=== PATIENT | female | born 1995 | race Caucasian/White ===

== ENCOUNTER → 2019-08-13 11:01 | Outpatient (BNVA) | payer SELFPAY | PROVIDERS: Family Provider Nurse Practitioner; Visit Provider Family Medicine | DX: Z00.00 Encounter for general adult medical examination without abnormal findings (principal); N91.2 Amenorrhea, unspecified | CPT/HCPCS: 80053; 80061; 84443; 85025 ==

== ENCOUNTER → 2020-02-03 10:56 | Outpatient (BNVA) | payer BC, SELFPAY | PROVIDERS: Family Provider Nurse Practitioner; Visit Provider Family Medicine | DX: Z98.84 Bariatric surgery status (principal) | CPT/HCPCS: 80053; 82607; 82728; 83540; 85025 ==

== ENCOUNTER → 2020-08-05 09:20 | Outpatient (BNVA) | payer BC, SELFPAY | PROVIDERS: Family Provider Nurse Practitioner; PCP Family Medicine; Visit Provider Family Medicine | DX: Z01.419 Encounter for gynecological examination (general) (routine) without abnormal findings (principal); Z98.84 Bariatric surgery status; Z78.9 Other specified health status | CPT/HCPCS: 80053; 80061; 84443; 85025; 87491; 88175 ==

== ENCOUNTER → 2020-12-19 15:20 | Outpatient (BNVA) | payer BC, SELFPAY | PROVIDERS: Family Provider Nurse Practitioner; PCP Family Medicine; Visit Provider Obstetrics & Gynecology | DX: N93.9 Abnormal uterine and vaginal bleeding, unspecified (principal) | CPT/HCPCS: 82670; 83001; 83002; 84144; 84146; 84403; 84443; 84702 ==

== ENCOUNTER → 2020-12-28 15:16 | Outpatient (BNVA) | payer BC, SELFPAY | PROVIDERS: Family Provider Nurse Practitioner; PCP Family Medicine; Visit Provider Obstetrics & Gynecology | DX: N93.9 Abnormal uterine and vaginal bleeding, unspecified (principal); N91.2 Amenorrhea, unspecified | CPT/HCPCS: 76830 ==

== ENCOUNTER → 2021-04-02 12:20 | Outpatient (BNVA) | payer BC, SELFPAY | PROVIDERS: Family Provider Nurse Practitioner; PCP Family Medicine; Visit Provider Family Medicine | DX: R05.9 Cough, unspecified (principal); Z20.822 Contact with and (suspected) exposure to COVID-19 | CPT/HCPCS: 81025; 87400 ==

== ENCOUNTER → 2021-10-04 09:22 | Outpatient (BNVA) | payer BC, SELFPAY | PROVIDERS: Family Provider Nurse Practitioner; PCP Family Medicine; Visit Provider Nurse Practitioner Family | DX: Z00.00 Encounter for general adult medical examination without abnormal findings (principal); R11.0 Nausea | CPT/HCPCS: 80053; 80061; 81025; 84443; 85025 ==

== ENCOUNTER → 2021-12-29 08:54 | Outpatient (BNVA) | payer BC, SELFPAY | PROVIDERS: Family Provider Nurse Practitioner; PCP Family Medicine; Visit Provider Nurse Practitioner Family | DX: D50.9 Iron deficiency anemia, unspecified (principal); E66.9 Obesity, unspecified; H65.90 Unspecified nonsuppurative otitis media, unspecified ear | CPT/HCPCS: 83540; 85025 ==

== ENCOUNTER → 2022-11-02 11:19 | Outpatient (BNVA) | payer BC, SELFPAY | PROVIDERS: Family Provider Nurse Practitioner; PCP Family Medicine; Visit Provider Nurse Practitioner Family | DX: R55 Syncope and collapse (principal) | CPT/HCPCS: 80053; 83540; 84443; 85025 ==

== ENCOUNTER → 2022-11-13 12:37 | Outpatient (BNVA) | payer BC, SELFPAY | PROVIDERS: Family Provider Nurse Practitioner; PCP Family Medicine; Visit Provider Internal Medicine Cardiovascular Disease | DX: R55 Syncope and collapse (principal) | CPT/HCPCS: 93005 ==

== ENCOUNTER → 2022-12-04 11:03 | Outpatient (BNVA) | payer BC, SELFPAY | PROVIDERS: Family Provider Nurse Practitioner; PCP Family Medicine; Visit Provider Nurse Practitioner Family | DX: R05.9 Cough, unspecified (principal); Z20.822 Contact with and (suspected) exposure to COVID-19 | CPT/HCPCS: 87426 ==

== ENCOUNTER 2022-12-24 09:02 | Oncology outpatient (recurring) (ONCR) | payer BC, SELFPAY ==
[2022-12-24 10:59] LABS: Hematocrit 39.1 % (36-47); Mean Corpuscular HGB Conc 30.9 g/dL (30-55); Mean Corpuscular Hemoglobin 25.6 pg (27-33); Mean Corpuscular Volume 82.8 fl (85-98); Mean Platelet Volume 10.1 fL (7.4-10.4); Platelet Count 239 10^3/cmm (157-399); Red Blood Count 4.72 10^6/uL (3.85-5.65); Red Cell Distribution Width 13.6 % (12.1-15.1); White Blood Count 5.41 10^3/uL (3.29-11.43)
[2022-12-24 11:28] LABS: Ferritin 11 ng/mL (15-150); Iron 39 ug/dL (37-145); Percent Saturation 12.3 % (20-50); Total Iron Binding Capacity 315 mcg/dl; Unsaturated Iron Binding 276 ug/dL (112-347)
[2022-12-24 11:43] LABS: Vitamin B12 339 pg/mL (232-1245)
[2022-12-24 12:02] LABS: Absolute Segmented Neutrophil 2.9 10/cmm (1.6-7.1); Lymphocytes 42 %; Monocytes Absolute 0.1 10^3/cmm (0.1-0.6); Segmented Neutrophils 54 %; Total Cells Counted 100 (0-100)
[2022-12-24 12:03] LABS: Absolute Eosinophils 0.1 10^3/cmm (0.0-0.7); Absolute Neutrophil 2.9 10^3/cmm (1.4-6.5); Eosinophils 1 %; Lymphocytes Absolute 2.4 10^3/cmm (1.2-3.4); Platelet Estimate Normal (Normal)
== END 2023-01-22 23:59 | disposition home or self-care (01) ==
PROVIDERS: Family Provider Nurse Practitioner; PCP Family Medicine; Visit Provider Internal Medicine Medical Oncology
DX: R79.89 Other specified abnormal findings of blood chemistry (principal)
CPT/HCPCS: 36415; 82607; 82728; 83540; 83550; 85007; 85027

== ENCOUNTER → 2023-05-30 16:09 | Outpatient (BNVA) | payer BC, SELFPAY | PROVIDERS: Family Provider Nurse Practitioner; PCP Family Medicine; Visit Provider Nurse Practitioner Family | DX: R50.9 Fever, unspecified (principal) | CPT/HCPCS: 87071; 87400; 87880 ==